=== PATIENT | male | born 1940 | race Caucasian/White ===

== ENCOUNTER 2016-11-16 07:13 | Inpatient (IN) | payer OTHER ==
[~2016-11-16] VITALS: Ht 172.7 cm; Wt 101.2 kg
[~2016-11-16 07:13] MED LIST: COREG CR40 MG PO; ERGOCALCIF50000 UNIT PO; LIPITOR10 MG PO; LO-DOSE ASPIRIN81 M1 PO; TRICOR145 MG PO; VITAMIN D2000 UNIT PO; WELLBUTRIN100 MG PO; ZESTRIL40 MG PO; ZYLOPRIM100 MG PO
[2016-11-16 08:52] LABS: POINT-OF-CARE METER ID UU14174212
[2016-11-16 11:34] LABS: POINT-OF-CARE METER ID UU13113819
[2016-11-16 13:34] LABS: POINT-OF-CARE METER ID UU13113702
[2016-11-16 13:57] LABS: EOSINOPHIL (%) 0.7 % (0-5); EOSINOPHIL COUNT 0.1 K/uL (0-0.3); IMMATURE GRANULOCYTE (%) 0.8 % (0.0-0.7); IMMATURE GRANULOCYTE COUNT 0.1 K/uL; INSTRUMENT ABS NEUTROPHIL CT 6.5 K/uL; LYMPHOCYTE COUNT 0.4 K/uL (1.0-2.8); MCH 34.1 PG (29.0-34.0); MCHC 32.7 G/DL (30.0-36.0); MCV 104.5 FL (86-99); MEAN PLAT.VOLUME 9.8 uM^3 (9.0-12.4); MONOCYTE (%) 4.1 % (3-12); MONOCYTE COUNT 0.3 K/uL (0-0.8); NEUTROPHIL (%) 89.3 % (45-76); NEUTROPHIL COUNT 6.5 K/uL (1.8-6.4); PLATELET COUNT 145 K/uL (156-360); RBC DIS.WIDTH-CV 13.2 % (11.8-14.6); RED BLOOD COUNT 2.87 M/uL (4.00-5.50); WHITE BLOOD COUNT 7.3 K/uL (4.1-10.2)
[2016-11-16 14:05] LABS: CHLORIDE 111 mEq/L (99-109); POTASSIUM 4.6 mEq/L (3.7-5.4); SODIUM 140 mEq/L (136-147)
[2016-11-16 14:06] LABS: INTER. NORMALIZED RATIO 1.1; PROTHROMBIN TIME 11.8 SEC (10.2-12.9)
[2016-11-16 14:07] LABS: GLUCOSE 197 mg/dL (70-99)
[2016-11-16 14:08] LABS: PTT 26.3 SEC (25-37)
[2016-11-16 14:09] LABS: ANION GAP 12 MEQ/L (2-14)
[2016-11-16 14:11] LABS: GFR ESTIMATE (CALCULATED) 23 mL/min/
[2016-11-16 14:12] LABS: UREA NITROGEN (BUN) 41 mg/dL (9-23)
[2016-11-16 14:17] LABS: TROP-I INTERPRETATION NEGATIVE; TROPONIN-I < 0.01 ng/mL (0.0-0.30)
[2016-11-16 16:28] LABS: ADD MIUA? YES; BILIRUBIN NEGATIVE; BLOOD LARGE; COLOR YELLOW ((YELLOW)); GLUCOSE (STRIP) 150; KETONES NEGATIVE; LEUKOCYTES NEGATIVE; NITRITE NEGATIVE; PROTEIN (STRIP) 100; SPECIFIC GRAVITY 1.014 (1.000-1.030); UROBILINOGEN 0.2 MG/DL (0.2-1.0)
[2016-11-16 16:38] LABS: BACTERIA NONE SEEN /HPF; EPITHELIAL CELLS RARE /HPF; HYALINE CASTS 0-5 /LPF; MUCUS NONE SEEN /LPF; RED BLOOD CELLS TNTC /HPF (0-5); UCUL ADDED? YES
[2016-11-16 19:32] VITALS: BP 125/64
[2016-11-16 20:07] LABS: HEMATOCRIT 28.4 % (38.0-50.0); MCH 34.4 PG (29.0-34.0); MCHC 33.1 G/DL (30.0-36.0); MEAN PLAT.VOLUME 10.4 uM^3 (9.0-12.4); PLATELET COUNT 131 K/uL (156-360); RBC DIS.WIDTH-CV 13.4 % (11.8-14.6); RBC DIS.WIDTH-SD 50.9 % (39-53); RED BLOOD COUNT 2.73 M/uL (4.00-5.50); WHITE BLOOD COUNT 7.9 K/uL (4.1-10.2)
[2016-11-16 20:54] LABS: POINT-OF-CARE METER ID UU13113725
[2016-11-16 23:44] VITALS: BP 146/64
[2016-11-17 00:53] LABS: HEMATOCRIT 24.3 % (38.0-50.0); MCH 34.7 PG (29.0-34.0); MCHC 33.7 G/DL (30.0-36.0); MEAN PLAT.VOLUME 9.5 uM^3 (9.0-12.4); PLATELET COUNT 112 K/uL (156-360); RBC DIS.WIDTH-CV 13.5 % (11.8-14.6); RBC DIS.WIDTH-SD 50.2 % (39-53); RED BLOOD COUNT 2.36 M/uL (4.00-5.50); WHITE BLOOD COUNT 6.4 K/uL (4.1-10.2)
[2016-11-17 04:06] VITALS: BP 107/59
[2016-11-17 06:29] LABS: HEMATOCRIT 23.5 % (38.0-50.0); MCH 34.1 PG (29.0-34.0); MCHC 32.3 G/DL (30.0-36.0); MCV 105.4 FL (86-99); MEAN PLAT.VOLUME 10.4 uM^3 (9.0-12.4); PLATELET COUNT 119 K/uL (156-360); RBC DIS.WIDTH-CV 13.6 % (11.8-14.6); RBC DIS.WIDTH-SD 51.8 % (39-53); RED BLOOD COUNT 2.23 M/uL (4.00-5.50); WHITE BLOOD COUNT 5.2 K/uL (4.1-10.2)
[2016-11-17 06:59] LABS: ANION GAP 5 MEQ/L (2-14); CHLORIDE 112 MEQ/L (99-109); GFR ESTIMATE (CALCULATED) 20 mL/min/; POTASSIUM 4.9 MEQ/L (3.7-5.4); SAMPLE HEMOLYSIS CHECK 0; SAMPLE ICTERIC CHECK 0; SAMPLE LIPEMIA CHECK 0; SODIUM 140 MEQ/L (136-147); UREA NITROGEN (BUN) 47 mg/dL (9-23)
[2016-11-17 07:11] LABS: GLUCOSE 104 mg/dL (70-99)
[2016-11-17 07:57] VITALS: BP 155/72
[2016-11-17 08:49] LABS: MCHC 32.4 G/DL (30.0-36.0); MEAN PLAT.VOLUME 9.9 uM^3 (9.0-12.4); PLATELET COUNT 128 K/uL (156-360); RBC DIS.WIDTH-CV 13.8 % (11.8-14.6); RBC DIS.WIDTH-SD 52.4 % (39-53); RED BLOOD COUNT 2.38 M/uL (4.00-5.50); WHITE BLOOD COUNT 6.6 K/uL (4.1-10.2)
[2016-11-17 12:01] LABS: POINT-OF-CARE METER ID UU13113725
[2016-11-17 12:08] LABS: HEMATOCRIT 24.1 % (38.0-50.0); MCH 35.8 PG (29.0-34.0); MCV 105.2 FL (86-99); MEAN PLAT.VOLUME 10.2 uM^3 (9.0-12.4); PLATELET COUNT 120 K/uL (156-360); RBC DIS.WIDTH-CV 13.9 % (11.8-14.6); RBC DIS.WIDTH-SD 53.2 % (39-53); RED BLOOD COUNT 2.29 M/uL (4.00-5.50); WHITE BLOOD COUNT 5.5 K/uL (4.1-10.2)
[2016-11-17 16:05] VITALS: BP 175/81
[2016-11-17 17:06] LABS: HEMATOCRIT 23.3 % (38.0-50.0); MCH 35.7 PG (29.0-34.0); MCHC 33.9 G/DL (30.0-36.0); MCV 105.4 FL (86-99); MEAN PLAT.VOLUME 10.4 uM^3 (9.0-12.4); PLATELET COUNT 111 K/uL (156-360); RBC DIS.WIDTH-CV 13.7 % (11.8-14.6); RED BLOOD COUNT 2.21 M/uL (4.00-5.50); WHITE BLOOD COUNT 5.1 K/uL (4.1-10.2)
[2016-11-17 17:38] LABS: POINT-OF-CARE METER ID UU13113725
[2016-11-17 19:17] VITALS: BP 168/81
[2016-11-17 20:44] LABS: HEMATOCRIT 21.3 % (38.0-50.0); MCH 36.1 PG (29.0-34.0); MCHC 34.3 G/DL (30.0-36.0); MCV 105.4 FL (86-99); MEAN PLAT.VOLUME 10.7 uM^3 (9.0-12.4); PLATELET COUNT 93 K/uL (156-360); RBC DIS.WIDTH-CV 13.7 % (11.8-14.6); RED BLOOD COUNT 2.02 M/uL (4.00-5.50); WHITE BLOOD COUNT 4.2 K/uL (4.1-10.2)
[2016-11-17 20:57] LABS: POINT-OF-CARE METER ID UU13113725
[2016-11-17 22:36] VITALS: BP 189/84
[2016-11-18] VITALS (13 sets, daily range): BP systolic 158–187; BP diastolic 69–89
[2016-11-18 00:59] LABS: HEMATOCRIT 20.8 % (38.0-50.0); MCH 34.7 PG (29.0-34.0); MCHC 33.7 G/DL (30.0-36.0); MEAN PLAT.VOLUME 10.5 uM^3 (9.0-12.4); PLATELET COUNT 84 K/uL (156-360); RBC DIS.WIDTH-CV 13.4 % (11.8-14.6); RBC DIS.WIDTH-SD 50.6 % (39-53); RED BLOOD COUNT 2.02 M/uL (4.00-5.50); WHITE BLOOD COUNT 4.2 K/uL (4.1-10.2)
[2016-11-18 07:20] LABS: EOSINOPHIL (%) 1.7 % (0-5); EOSINOPHIL COUNT 0.1 K/uL (0-0.3); HEMATOCRIT 20.1 % (38.0-50.0); INSTRUMENT ABS NEUTROPHIL CT 3.4 K/uL; LYMPHOCYTE COUNT 0.3 K/uL (1.0-2.8); MCHC 32.3 G/DL (30.0-36.0); MCV 105.2 FL (86-99); MEAN PLAT.VOLUME 10.3 uM^3 (9.0-12.4); MONOCYTE (%) 8.2 % (3-12); MONOCYTE COUNT 0.3 K/uL (0-0.8); NEUTROPHIL (%) 81.6 % (45-76); NEUTROPHIL COUNT 3.4 K/uL (1.8-6.4); PLATELET COUNT 91 K/uL (156-360); RBC DIS.WIDTH-CV 13.6 % (11.8-14.6); RBC DIS.WIDTH-SD 52.1 % (39-53); RED BLOOD COUNT 1.91 M/uL (4.00-5.50); WHITE BLOOD COUNT 4.1 K/uL (4.1-10.2)
[2016-11-18 07:28] LABS: ANION GAP 8 MEQ/L (2-14); CHLORIDE 115 MEQ/L (99-109); GFR ESTIMATE (CALCULATED) 22 mL/min/; GLUCOSE 105 mg/dL (70-99); POTASSIUM 4.2 MEQ/L (3.7-5.4); SAMPLE HEMOLYSIS CHECK 0; SAMPLE ICTERIC CHECK 0; SAMPLE LIPEMIA CHECK 0; SODIUM 143 MEQ/L (136-147); UREA NITROGEN (BUN) 46 mg/dL (9-23)
[2016-11-18 20:29] LABS: HEMATOCRIT 27.3 % (38.0-50.0); MCH 34.4 PG (29.0-34.0); MCHC 34.4 G/DL (30.0-36.0); MEAN PLAT.VOLUME 10.3 uM^3 (9.0-12.4); PLATELET COUNT 103 K/uL (156-360); RBC DIS.WIDTH-CV 15.9 % (11.8-14.6); RBC DIS.WIDTH-SD 57.8 % (39-53); WHITE BLOOD COUNT 5.7 K/uL (4.1-10.2)
[2016-11-18 20:47] LABS: RED BLOOD COUNT 2.73 M/uL (4.00-5.50)
[2016-11-18 21:29] LABS: POINT-OF-CARE USER ID 608261329
[2016-11-18 21:38] LABS: POINT-OF-CARE METER ID UU13113725
[2016-11-19 02:21] VITALS: BP 186/81
[2016-11-19 06:00] LABS: POINT-OF-CARE METER ID UU13113725
[2016-11-19 06:02] LABS: EOSINOPHIL (%) 1.5 % (0-5); EOSINOPHIL COUNT 0.1 K/uL (0-0.3); HEMATOCRIT 23.8 % (38.0-50.0); IMMATURE GRANULOCYTE (%) 0.9 % (0.0-0.7); INSTRUMENT ABS NEUTROPHIL CT 3.8 K/uL; LYMPHOCYTE COUNT 0.4 K/uL (1.0-2.8); MCH 33.9 PG (29.0-34.0); MCV 99.6 FL (86-99); MEAN PLAT.VOLUME 10.7 uM^3 (9.0-12.4); MONOCYTE (%) 7.8 % (3-12); MONOCYTE COUNT 0.4 K/uL (0-0.8); NEUTROPHIL (%) 81.6 % (45-76); NEUTROPHIL COUNT 3.8 K/uL (1.8-6.4); PLATELET COUNT 89 K/uL (156-360); RBC DIS.WIDTH-CV 16.3 % (11.8-14.6); RBC DIS.WIDTH-SD 60.1 % (39-53); RED BLOOD COUNT 2.39 M/uL (4.00-5.50); WHITE BLOOD COUNT 4.6 K/uL (4.1-10.2)
[2016-11-19 06:17] LABS: ANION GAP 8 MEQ/L (2-14); CHLORIDE 114 MEQ/L (99-109); GFR ESTIMATE (CALCULATED) 26 mL/min/; GLUCOSE 85 mg/dL (70-99); POTASSIUM 4.2 MEQ/L (3.7-5.4); SAMPLE HEMOLYSIS CHECK 0; SAMPLE ICTERIC CHECK 0; SAMPLE LIPEMIA CHECK 0; SODIUM 141 MEQ/L (136-147); UREA NITROGEN (BUN) 41 mg/dL (9-23)
[2016-11-19 08:03] VITALS: BP 188/77
[2016-11-19 08:30] VITALS: BP 136/68
[2016-11-19 11:10] VITALS: BP 124/68
[2016-11-19 11:28] LABS: POINT-OF-CARE METER ID UU13113725
[2016-11-19 13:39] LABS: HEMATOCRIT 25.2 % (38.0-50.0); MCH 33.6 PG (29.0-34.0); MCHC 33.7 G/DL (30.0-36.0); MCV 99.6 FL (86-99); MEAN PLAT.VOLUME 10.4 uM^3 (9.0-12.4); PLATELET COUNT 90 K/uL (156-360); RBC DIS.WIDTH-CV 16.4 % (11.8-14.6); RED BLOOD COUNT 2.53 M/uL (4.00-5.50); WHITE BLOOD COUNT 4.6 K/uL (4.1-10.2)
[2016-11-19] MEDS ORDERED: TAMSULOSIN HCL0.4 MG PO (15:20)
[2016-11-19 15:49] VITALS: BP 122/82
== END 2016-11-19 17:12 | disposition home or self-care (01) | DRG 920 ==
LOC: OPR 07:13 → EME 07:13 → OPR 08:00 → EDSTATUS 08:00 → EDOF 16:29 → ENRESERV 16:30 → 5EAST 19:09
PROVIDERS: Emergency Medicine; Internal Medicine; Internal Medicine Nephrology
DX: E89.820 Postprocedural hematoma of an endocrine system organ or structure following an endocrine system procedure (principal); N20.1 Calculus of ureter; M10.9 Gout, unspecified; I12.9 Hypertensive chronic kidney disease with stage 1 through stage 4 chronic kidney disease, or unspecified chronic kidney disease; E11.22 Type 2 diabetes mellitus with diabetic chronic kidney disease; E78.5 Hyperlipidemia, unspecified; E55.9 Vitamin D deficiency, unspecified; R80.9 Proteinuria, unspecified; D62 Acute posthemorrhagic anemia; E66.9 Obesity, unspecified; Z68.32 Body mass index [BMI] 32.0-32.9, adult; N18.9 Chronic kidney disease, unspecified; Z85.828 Personal history of other malignant neoplasm of skin; Z87.891 Personal history of nicotine dependence; Z87.442 Personal history of urinary calculi
CPT/HCPCS: 36415; 70450; 71010; 74176; 77012; 80048; 80069; 81003; 82948; 84484; 85025; 85027; 85610; 85610 GA; 85730; 85730 GA; 86850; 86900; 86901; 86920; 87040; 87086; 88305; 88313 90; 88346 90; 88348 90; 93005; 99281; 99285; J0360; J1815; J2405; J2765; J3010; J7030; P9040; S0028

== ENCOUNTER 2017-01-11 09:51 | Day surgery (SDC) | payer OTHER ==
[~2017-01-11] VITALS: Ht 172.7 cm; Wt 95.3 kg
[~2017-01-11 09:51] MED LIST changes: +TAMSULOSIN HCL0.4 MG PO; -VITAMIN D2000 UNIT PO; +VITAMIN D33000 UNIT PO
[2017-01-11 10:23] VITALS: BP 135/78
[2017-01-11 10:25] LABS: POINT-OF-CARE METER ID UU14174212
[2017-01-11 13:09] LABS: POINT-OF-CARE METER ID UU13113675
[2017-01-11 13:52] VITALS: BP 186/89
[2017-01-11 14:38] VITALS: BP 172/81
== END 2017-01-11 14:45 | disposition home or self-care (01) ==
LOC: SDC 09:51
PROVIDERS: Urology
PROC: 0TCB8ZZ Extirpation of Matter from Bladder, Via Natural or Artificial Opening Endoscopic (ICD-10-PCS; principal; 2017-01-11)
DX: N20.1 Calculus of ureter (principal); N35.9 Urethral stricture, unspecified; N21.0 Calculus in bladder; I10 Essential (primary) hypertension; E11.9 Type 2 diabetes mellitus without complications; E78.5 Hyperlipidemia, unspecified; N40.0 Benign prostatic hyperplasia without lower urinary tract symptoms; Z87.442 Personal history of urinary calculi; Z87.891 Personal history of nicotine dependence
CPT/HCPCS: 74000; 76000; 82365 90; 82948; C1769; J0690; J2405; J3010; J7050